=== PATIENT | female | born 1965 ===

== ENCOUNTER 2023-03-27 11:15 | Inpatient (IN) | payer OTHER ==
[~2023-03-27] VITALS: Ht 167.6 cm; Wt 101.6 kg
[2023-03-28] MEDS ORDERED: IRBESARTAN-HCT1 EAC1 PO (08:50)
[2023-03-28] MEDS ORDERED: ACID REDUCER20 M1 PO (08:51)
[2023-03-28] MEDS ORDERED: CATAFLAN PO (08:51)
[2023-04-01] MEDS ORDERED: DICLOFENAC POTA50 MG (07:54)
[2023-04-01] MEDS ORDERED: FOLIC ACID1 MG (07:54)
[2023-04-01] MEDS ORDERED: OMEPRAZOLE20 MG (07:54)
[2023-04-01] MEDS ORDERED: AMITRIPTYLINE H25 MG (07:54)
[2023-04-03] MEDS ORDERED: XARELTO10 MG PO (06:37)
[2023-04-03] MEDS ORDERED: OXYC1TAB9 PO (06:37)
[2023-04-03] MEDS ORDERED: BACTRIM DS TAB1 EACH PO (06:37)
[2023-04-03] MEDS ORDERED: INTEGRA PLUS C1 EACH PO (06:37)
== END 2023-04-03 15:04 | DRG 470 ==
LOC: O/R 04-01 07:48 → SURH 04-01 07:48 → SURG 04-01 08:30 → SURH 04-01 13:28 → O/R 04-03 11:11 → SURH 04-03 11:12
PROVIDERS: ADMIT Orthopaedic Surgery Sports Medicine; ATTEND Orthopaedic Surgery Sports Medicine
PROC: 0SRC0J9 Replacement of Right Knee Joint with Synthetic Substitute, Cemented, Open Approach (ICD-10-PCS; principal; 2023-04-01 08:30)
DX: M17.11 Unilateral primary osteoarthritis, right knee (principal)

== ENCOUNTER 2024-07-15 11:00 | Inpatient (IN) | payer OTHER ==
[~2024-07-15] VITALS: Ht 167.6 cm; Wt 90.7 kg
[~2024-07-15 11:00] MED LIST: ACID REDUCER20 M1 PO; AMITRIPTYLINE H25 MG; BACTRIM DS TAB1 EACH PO; CATAFLAN PO; DICLOFENAC POTA50 MG; FOLIC ACID1 MG; INTEGRA PLUS C1 EACH PO; IRBESARTAN-HCT1 EAC1 PO; OMEPRAZOLE20 MG; OXYC1TAB9 PO; XARELTO10 MG PO
[2024-07-15] MEDS ORDERED: ORENCIA (13:07)
[2024-07-15] MEDS ORDERED: [UNRECOGNIZED DRUG - OTHER] (13:08)
[2024-07-20 08:28] LABS: RH POSITIVE
[2024-07-20] MEDS ORDERED: POVIDONE-IODINE 0.75 OZ PACKET TOP ONE (14:45)
[2024-07-20] MEDS ORDERED: BUPIVACAINE HCL 30 ML VIAL IJ ONE (14:45)
[2024-07-20] MEDS ORDERED: KETOROLAC TROMETHAMINE 60 MG VIAL IM ONE (14:45)
[2024-07-20] MEDS ORDERED: CEFAZOLIN SODIUM 1,000 MG VIAL IV ONE (14:45)
[2024-07-20] MEDS ORDERED: MORPHINE SULFATE 4 MG/ML VIAL IV ONE ×3 (14:45→18:50)
[2024-07-20] MEDS ORDERED: VANCOMYCIN HCL 1,000 MG VIAL IR ONE (14:45)
[2024-07-20] MEDS ORDERED: LIDOCAINE HCL 1%/EPINEPHRINE 20ML VIAL IJ ONE (14:45)
[2024-07-20] MEDS ORDERED: TRANEXAMIC ACID 100MG/1ML (1000MG) AMPUL IV ONE ×2 (14:45)
[2024-07-20] MEDS ORDERED: MORPHINE SULFATE 4 MG/ML CARTRIDGE IV PRN (16:15)
[2024-07-20] MEDS ORDERED: ONDANSETRON HCL 2 MG/ML VIAL IV PRN (16:15)
[2024-07-20] MEDS ORDERED: SODIUM CHLORIDE 0.45 % 1,000 ML IV SCH (16:15)
[2024-07-20] MEDS ORDERED: MORPHINE SULFATE 2 MG/ML CARTRIDGE IV ONE (16:15)
[2024-07-20] MEDS ORDERED: CEFAZOLIN SODIUM 1,000 MG VIAL IV SCH (18:00)
[2024-07-20 18:56] LABS: HEMATOCRIT 32.3 % (36.0-45.00); HEMOGLOBIN 10.7 g/dL (12.0-15.00); RED BLOOD COUNT 3.45 M/uL (4.00-6.00)
[2024-07-20] MEDS ORDERED: GENTAMICIN SULFATE 40 MG/ML VIAL IV SCH (21:00)
[2024-07-20 21:17] VITALS: BP 128/78; O2SAT 96
[2024-07-21 00:27] VITALS: BP 146/75; O2SAT 100
[2024-07-21] MEDS ORDERED: TRAMADOL HCL 50 MG TABLET PO PRN (06:30)
[2024-07-21 07:30] VITALS: BP 133/73; O2SAT 96
[2024-07-21 07:45] LABS: HEMATOCRIT 30.4 % (36.0-45.00); HEMOGLOBIN 10.4 g/dL (12.0-15.00); MEAN CELL VOLUME 92.7 fL (80.00-100.00); MEAN CORPUSCULAR HEMOGLOBIN 31.7 pg (27.00-32.0); MEAN CORPUSCULAR HGB CONC 34.2 g/dl (32.0-36.0); PLATELET COUNT 203 K/uL (150-450); RED BLOOD COUNT 3.28 M/uL (4.00-6.00)
[2024-07-21] MEDS ORDERED: ENALAPRIL MALEATE 5 MG TABLET PO SCH (09:00)
[2024-07-21] MEDS ORDERED: IRBESARTAN 300 MG TABLET PO SCH (09:00)
[2024-07-21] MEDS ORDERED: RIVAROXABAN 10 MG TAB PO SCH (09:00)
[2024-07-21] MEDS ORDERED: IRON FUM,PS/FOLIC/BCOMP,C NO.9 1 CAP CAPSULE PO SCH (09:00)
[2024-07-21] MEDS ORDERED: BACITRACIN 28.35 GM OINT.TUBE TOP SCH (09:00)
[2024-07-21] MEDS ORDERED: SENNA/DOCUSATE SODIUM 1 TAB TABLET PO SCH (09:00)
[2024-07-21] MEDS ORDERED: HYDROCHLOROTHIAZIDE 12.5 MG CAPSULE PO SCH (09:00)
[2024-07-21] MEDS ORDERED: CELECOXIB 200 MG CAPSULE PO SCH (09:00)
[2024-07-21 13:35] LABS: ALBUMIN 3.2 gm/dL (3.4-5.0); BILIRUBIN TOTAL 0.52 mg/dL (0.3-1.2); CALCIUM 8.6 mg/dL (8.5-10.1); GFR 56.55; MAGNESIUM 1.9 mg/dL (1.8-2.4); PHOSPHOROUS 2.8 mg/dL (2.5-4.9); POTASSIUM 3.43 mEq/L (3.5-5.1); TOTAL PROTEIN 7.2 gm/dL (6.4-8.2)
[2024-07-21 16:00] VITALS: BP 162/68; O2SAT 100
[2024-07-21] MEDS ORDERED: FAMOTIDINE/PF 20 MG in 0.9 % SODIUM CHLORIDE 8 ML IV PUSH SCH (18:41)
[2024-07-21] MEDS ORDERED: POTASSIUM CHLORIDE 10 MEQ CAPSULE PO ONE (19:00)
[2024-07-22] VITALS: BP 143/69; O2SAT 96
[2024-07-22 06:27] LABS: HEMATOCRIT 28.5 % (36.0-45.00); HEMOGLOBIN 9.6 g/dL (12.0-15.00); MEAN CELL VOLUME 93.1 fL (80.00-100.00); MEAN CORPUSCULAR HEMOGLOBIN 31.4 pg (27.00-32.0); MEAN CORPUSCULAR HGB CONC 33.7 g/dl (32.0-36.0); PLATELET COUNT 180 K/uL (150-450); RED BLOOD COUNT 3.06 M/uL (4.00-6.00); RED CELL DISTRIBUTION WIDTH 15.7 % (11.5-14.5)
[2024-07-22] MEDS ORDERED: XARELTO10 MG PO (08:10)
[2024-07-22] MEDS ORDERED: Septra Ds Tablet PO (08:10)
[2024-07-22] MEDS ORDERED: INTEGRA PLUS C1 EACH PO (08:10)
[2024-07-22] MEDS ORDERED: TRAMADOL HCL50 MG PO (08:11)
[2024-07-22] MEDS ORDERED: SULFAMETHOXAZOLE/TRIMETHOPRIM DS 1 TAB PO SCH (09:00)
[2024-07-22 09:53] VITALS: BP 175/91; O2SAT 98
== END 2024-07-22 15:50 | DRG 470 ==
LOC: O/R 07-20 05:31 → SURH 07-20 07:00 → SURG 07-20 17:48
PROVIDERS: Internal Medicine; ADMIT Orthopaedic Surgery Sports Medicine; ATTEND Orthopaedic Surgery Sports Medicine
PROC: 0SRD0J9 Replacement of Left Knee Joint with Synthetic Substitute, Cemented, Open Approach (ICD-10-PCS; principal; 2024-07-20 07:00)
DX: M17.12 Unilateral primary osteoarthritis, left knee (principal); I10 Essential (primary) hypertension; D64.9 Anemia, unspecified; D72.819 Decreased white blood cell count, unspecified